=== PATIENT | female | born 1995 | race Caucasian/White ===

== ENCOUNTER 2017-07-31 21:14 | Emergency (ER) | payer BC ==
[~2017-07-31] VITALS: Ht 157.5 cm; Wt 52.0 kg
[2017-07-31 21:30] VITALS: TEMP 36.7; Ht 157.5 cm; Wt 52.0 kg
[2017-07-31] MEDS ORDERED: ESCI10TA17 PO (21:30)
[2017-07-31] MEDS ORDERED: XYLOCAINE 1%/SOD BICARB 20 ML VIAL INFIL ONE (21:30)
[2017-07-31] MEDS ORDERED: BCPILLS PO (21:30)
[2017-07-31 22:58] VITALS: BP 143/75; PULSE 62; O2SAT 99
--- NOTE | 2017-07-31 23:34 | EMERGENCY ROOM VISIT NOTE ---
History First contact with patient: 21:09 Chief Complaint: LACERATION/CUT (NON-SUTURE) Stated Complaint: LEG LACERATION Nursing Triage Summary: patient was shaving in the shower and gave a 3 inch laceration to the inner anterior calf History of Present Illness The patient is a 21 year old female who presents to the Emergency Room with complaints of laceration to the inside of her right lower leg. The patient states that she went for a run this afternoon, got home, and was appearing to shower. The patient states that she typically shaves her legs before getting into the shower itself, and accidentally cut herself. She was unsure what to do as she had bleeding and saw deep tissue. She contacted EMS, who bring the patient to the ER for evaluation. The patient is reportedly healthy and up-to- date on her immunizations including tetanus. She rates her discomfort a 2/10. Review of Systems More than 6 systems were reviewed and otherwise negative with the exception of history of present illness. Past Medical/Surgical History History of anxiety Family History No pertinent family history Social History Smoking Status: Former Smoker Occupation Status: [employer] student Current/Historical Medications Scheduled Control Pills ( Control Pills), 1 TAB PO DAILY Escitalopram (Lexapro), 10 MG PO DAILY Physical Exam Vital Signs Date Time Temp Pulse Resp B/P (MAP) Pulse Ox O2 Delivery O2 Flow Rate FiO2 07/31/17 22:58 62 20 143/75 99 07/31/17 21:30 36.7 85 20 152/101 99 Room Air Pain Rating (0-10): 0 Physical Exam VITALS: Vitals are noted on the nurse's note and reviewed by myself. Vital signs stable. GENERAL: Well-developed, well-nourished, anxious but pleasant white female who is cooperative with the examination HEART: Regular rate and rhythm without murmurs gallops or rubs. LUNGS: Clear to auscultation bilaterally without wheezes, rales or rhonchi. No retractions or accessory muscle use. MUSCULOSKELETAL: There is a 5.5 cm fairly linear laceration over the medial aspect of the right lower extremity just proximal to the medial malleolus. This laceration does gape and will require repair. Bleeding is well- controlled. The patient has full sensation and range of motion of the right lower extremity. No evidence of foreign body. NEURO: Patient was alert and oriented to person place and time. CN II through XII grossly intact. Medical Decision & Procedures Procedure Laceration repair. Patient elects to have their laceration repaired. Verbal consent was obtained to perform the procedure. There is an abundance of materials available for the procedure. Patient is not allergic to latex. Using sterile technique the wound was cleaned with Betadine. The area was sterilely draped. 8 ml of 1% buffered lidocaine was used to anesthetize the right lower leg laceration. Once the patient was anesthetized, the wound was copiously irrigated under pressure with sterile saline. The wound was explored and there were no deep structures injured such as tendons, bone, or significant blood vessels. The laceration was repaired using one horizontal 4-0 nylon mattress stitch and 10 simple interrupted 5-0 nylon sutures with the wound edges being well approximated. Hemostasis was achieved. The area was cleaned with sterile saline and dressed with bacitracin ointment and bandage. Patient tolerated the procedure well without complications. Blood loss was negligible. ED Course Physical exam and history were performed. Nursing notes, EMR, and Medication List were personally reviewed. Patient appears to have suffered a right lower leg laceration while shaving today. The laceration was cleansed and dressed. It did require a horizontal mattress suture as well as multiple simple interrupted sutures. The patient tolerated the procedure well and the wound was cleansed and dressed. There was concern from the patient's family, who called into the emergency department multiple times, that this laceration may have been intentional and self-inflicted. The patient herself denies suicidal or homicidal ideation. She is anxious, but appears reasonable and does not wish for mental health evaluation from the emergency department. Evidently she does have outpatient counseling services and is on Lexapro. I do not have any reason to detain the patient in the emergency department now that her treatment has been completed. She appears to have good family resources as well as outpatient resources. The patient was thoroughly invited to return to the ER if she had any new, worsening , or concerning symptoms. The family indicated they will call her over the next few days to make sure that she is doing well. The patient understands that if she does have concerns for her well-being she is to return to the ER anytime. She was otherwise given information as below. The chart was completed utilizing [employer] Speech Voice Recognition Software. Grammatical errors, random word insertions, pronoun errors, and incomplete sentences are an occasional consequence of this system due to software limitations, ambient noise, and hardware issues. Any formal questions or concerns about the content, text, or information contained within the body of this dictation should be directly addressed to the provider for clarification. . Medical Decision Differential diagnosis includes, but is not limited to: Laceration, abrasion, foreign body, ambulation, intentional injury, and others Blood Pressure Screening Patient's blood pressure: Normal blood pressure Impression Primary Impression: Laceration of right lower leg Departure Information Dispostion Home / Self-Care Condition GOOD Referrals [facility] (PCP) Forms HOME CARE DOCUMENTATION FORM, IMPORTANT VISIT INFORMATION Patient Instructions [facility], ED Laceration All, ED Scar Tips to Minimize Additional Instructions Keep wound clean and dry. Do not allow any crusting or dried blood to accumulate on sutures. If this occurs, use a mild soap/water on a Q-tip to clean the wound. Do not use Peroxide to clean the wound as this can delay healing Use an antibiotic ointment like Bacitracin for 3-4 days, then let wound dry. You may gently bathe and shower as normal, but DO NOT SOAK the wound. Suture removal in about 10-14 days with your Family Doctor or in the ER. Return sooner for any signs of infection, increasing redness, swelling, or drainage.
== END 2017-07-31 23:02 | disposition home or self-care (01) ==
LOC: C.EDD 21:15
DX: S81.811A Laceration without foreign body, right lower leg, initial encounter (principal); W45.8XXA Other foreign body or object entering through skin, initial encounter; Z87.891 Personal history of nicotine dependence